=== PATIENT | female | born 1960 | race Caucasian/White ===

== ENCOUNTER → 2019-09-05 09:35 | Outpatient (CLI) | payer OTHER ==
[~2019-09-05 09:35] MED LIST: ACETAMINOPHEN500 M1 PO; ELIQUIS5 MG PO; FLUTICASONE PRO16 GM NASAL; HCTZ25 MG PO; LISINOPRIL10 MG PO; PROTONIX40 MG PO; TUMS X-STR300 MG PO; ZYRTEC10 MG PO
--- NOTE | 2019-09-12 11:41 | ST ---
PATIENT:GEETA DIAZ MEDICAL RECORD: [id number] SEX: F LOCATION:[facility] ORDER #: ADMISSION DATE: 09/05/19 AGE OF PATIENT: 59 REFERRING PHYSICIAN: INTERPRETING PHYSICIAN: RADHA MADERA MD DATE OF SERVICE: 09/05/2019 PROCEDURE: Nuclear stress test. INDICATION: Angina and hypertension. She was exercised on standard Lexiscan protocol with 33 mCi of sestamibi injected at peak stress, 11 mCi used previously for rest images. FINDINGS: Gated SPECT reveals a preserved ejection fraction at 77% with good wall motioning and thickening and brightening throughout all segments. SPECT imaging Cardiolite was used as myocardial perfusion agent. There is reversibility anteriorly, apically and laterally. This includes the basal mid, apical, anterior segments, apex itself, basal mid, apical, lateral segments. The degree of reversibility is moderate anteriorly, mild laterally. OVERALL IMPRESSION: This is a high risk abnormal nuclear stress test. Reversible ischemia, anterior apical and lateral suggestive of multivessel hemodynamically significant coronary artery disease. TRANSINT:[id number] Voice Confirmation ID: [id number] DOCUMENT ID: [id number] RADHA MADERA MD at 1141 CC: JESUS DEMARCO [id number] DICTATION DATE: 09/06/19 1210 SEA FOAM KISS MAKER: 09/07/19 0046 DEP CLI 09/05/[address] [address]
[2019-09-15 08:56] VITALS: BMI 45.8
== END | disposition home or self-care (01) ==
LOC: D.HCCARDIO 09:35
PROVIDERS: ATTEND Internal Medicine Interventional Cardiology
DX: I20.9 Angina pectoris, unspecified (principal)

== ENCOUNTER 2019-09-15 08:05 | Outpatient (CLI) | payer OTHER ==
[~2019-09-15] VITALS: Ht 157.5 cm; Wt 113.6 kg
--- NOTE | ~2019-09-15 | HEMODYNAMI ---
PATIENT:GEETA DIAZ MEDICAL RECORD: [id number] : 64 LOCATION:[facility] ADMISSION DATE: 09/15/19 Generatedon:09/15/201910:18 Patient name: GEETA DIAZ Patient #: [id number] SSN: [id number] : 1960 Date of study: 09/15/2019 Page: Of Hemodynamic Procedure Report Patient Data Patient Demographics Procedure consent was obtained First Name: GEETA Gender: Female Last Name: EMILY : 1960 Patient #: [id number] Age: 59 year(s) Race: Unknown SSN: [id number] Additional ID: [id number] Contact details Address: [address] [place] [address] State: [place] City: [place] Zip code: [address] Past Medical History Allergies Allergen Reaction Date Comments Reported Other allergy 09/15/2019 Biaxin, Doxcycline, PCN Admission Admission Data Admission Date: 09/15/2019 Admission Time: 8:05 Arrival Date: 09/15/2019 Arrival Time: 0:00 Admit Source: Other Insurance Payor: Private health insurance Height (in.): 63 BSA: 2.14 (m2) Height (cm.): 160.02 BMI: 44.99 (kg/m2) Weight (lbs.): 254 Weight (kg.): 115.21 Lab Results Lab Result Date: 09/15/2019 Lab Result Time: 0:00 Biochemistry Name Units Result Min Max BUN mg/dl 14 --(--*-)-- 7 18 Creatinine mg/dl 0.9 --(-*--)-- 0.6 1.3 eGFR ml/min 67.40269 *-(----)-- 90 120 NONAFRICAN CBC Name Units Result Min Max Hematocrit % 43 --(*---)-- 42 54 Hemoglobin g/dl 14.1 --(*---)-- 13.5 17.5 Procedure Procedure Types Cath Procedure Diagnostic Procedure [facility] w/Coronaries Procedure Description Procedure Date Procedure Date: 09/15/2019 Procedure Start Time: 10:04 Procedure End Time: 10:11 Procedure Staff Name Function Cole Koroma MD Performing Physician Juliana Peterson RT Monitor Jael Bal RN Nurse Gaby Hammond RT Scrub Procedure Data Cath Procedure Fluoroscopy Diagnostic fluoroscopy Total fluoroscopy Time: 1.1 time: 1.1 min min Diagnostic fluoroscopy Total fluoroscopy dose: 174 dose: 174 mGy mGy Contrast Material Contrast Material Type Amount (ml) Isovue 300 47 Entry Location Entry Primary Successful Side Size Upsize Upsize Entry Closure Succes sful Closure Location (Fr) 1 (Fr) 2 (Fr) Remarks Device Remarks Femoral Right 5 Fr Exoseal artery Estimated blood loss: 10 ml Diagnostic catheters Device Type Used For End Catheter Placement MULTIPACK Pigtail 5 Fr Procedure catheter MULTIPACK JL 4.0 5Fr Procedure catheter MULTIPACK 3DRC 5Fr catheter Procedure Complications No complications Procedure Medications Medication Administration Route Dosage 0.9% NaCl I.V. 100 ml/hr Oxygen etCO2 Nasal cannula 2 l/min Lidocaine 2% added to field 20 Heparin Flush Bag added to field 2 bags (1000units/500ml NS) Versed I.V. 2 mg Fentanyl I.V. 50 mcg Versed I.V. 2 mg Fentanyl I.V. 50 mcg Versed I.V. 1 mg Hemodynamics Rest BSA: 2.14 (m2) HGB: 14.1 (g/dl) O2 Consumption: Estimated: 222.34 (ml/min) O2 Co nsumption indexed: Estimated:103.9 (ml/min/m) Heart Rate: 92 (bpm) Snapshots Pre Cath Intra NCS Post Cath Vital Signs Time Heart Resp SPO2 etCO2 NIBP (mmHg) Rhythm Pain Sedation Rate (ipm) (%) (mmHg) Status Level (bpm) 9:47:30 89 25 97 37.2 160/86(136) NSR 0 (11) 10(A) , No pain 9:51:44 95 21 97 37.2 140/85(114) NSR 0 (11) 10(A) , No pain 9:55:56 90 21 97 28.8 136/89(115) NSR 0 (11) 10(A) , No pain 10:00:10 93 19 97 40.2 136/79(106) NSR 0 (11) 10(A) , No pain 10:04:22 97 25 97 34.1 136/85(114) NSR 0 (11) 10(A) , No pain 10:08:36 100 30 98 39.5 141/82(114) NSR 0 (11) 10(A) , No pain Medications Time Medication Route Dose Verified Delivered Reason Notes Eff ectiveness by by 9:45:28 0.9% NaCl I.V. 100 Cole Jael used for ml/hr Ga Bal principal consulting engineer 9:45:35 Oxygen etCO2 2 Cole Jael used for Nasal l/min Ga Bal procedure cannula RN 9:45:39 Lidocaine 2% added 20ml Cole Cole for local to vial Ga Koroma MD anesthetic field 9:45:44 Heparin Flush added 2 Cole Cole used for Bag to bags Ga Koroma MD procedure (1000units/500ml field NS) 9:57:58 Versed I.V. 2 mg Cole Jael for Ga Bal sedation RN 9:58:04 Fentanyl I.V. 50 Cole Jael for mcg Ga Bal sedation RN 10:04:02 Versed I.V. 2 mg Cole Jael for Ga Bal sedation RN 10:04:05 Fentanyl I.V. 50 Cole Jael for mcg Ga Bal sedation RN 10:07:34 Versed I.V. 1 mg Cole Jael for Ga Bal sedation sanitary plumber Log Time Note 9:15:29 Informed consent obtained and on chart 9:18:15 Admit Source: Other 9:18:17 Arrival Date: 09/15/2019 12:00:00 AM 9:18:38 Insurance Payor : Private health insurance 9:19:20 Patient Height : 63 inches 9:19:25 Patient Weight : 254 lbs 9:23:56 ACC Patient presents with Stable Angina CCS Anginal Class 2--Slight limitation of ordinary activity. 9:24:02 Procedure Status Elective Heart Cath (OP). 9:24:07 Jael Bal RN sent for patient. Start room use. 9:24:09 Time tracking: Regular hours (M-F 7:00 - 5:00) 9:24:15 Plan of Care:Hemodynamics will remain stable., Cardiac rhythm will remain stable., Comfort level will be maintained., Respiratory function will remain adequate., Patient/ family verbilizes understanding of procedure., Procedure tolerated without complication., Recovers from procedure without complications.. 9:24:54 H&P Date Dictated: 08/29/2019 Within 30 days and on chart., H&P Addendum completed by physician on day of procedure. (MUST COMPLETE FOR ALL OUTPATIENTS). 9:24:56 Pre-procedure instructions explained to patient. 9:25:01 Family in waiting room. 9:25:46 Patient allergic to Other allergyBiaxin, Doxcycline, PCN 9:25:55 Is the patient allergic to Iodine/contrast media? No. 9:25:57 Was the patient premedicated? Yes 9:45:28 0.9% NaCl 100 ml/hr I.V. was administered by Jael Bal RN; used for procedure; Verbal order read back and verified. 9:45:35 Oxygen 2 l/min etCO2 Nasal cannula was administered by Jael Bal RN; used for procedure; Verbal order read back and verified. 9:45:39 Lidocaine 2% 20ml vial added to field was administered by Cole Koroma MD; for local anesthetic; Verbal order read back and verified. 9:45:44 Heparin Flush Bag (1000units/500ml NS) 2 bags added to field was administered by Cole Koroma MD; used for procedure; Verbal order read back and verified. 9:46:22 Vital chart was started 9:50:28 Patient received from Pre/Post Procedure Room to CCL 3 Alert and oriented. Tansferred to table in Supine position. 9:50:29 Warm blankets applied, and dianna hugger turned on for patient comfort. 9:50:29 Correct patient and procedure confirmed by team. 9:50:30 Baseline sample Acquired. 9:50:30 ECG and BP/O2 sat monitors applied to patient. 9:50:36 Rhythm: sinus rhythm 9:50:38 Full Disclosure recording started 9:51:09 Patient diabetic? No. 9:51:11 Is patient on blood thinner?Yes 9:51:15 ACC The patient was administered the following blood thiners within the last 24 hours: Eliquis 9:51:27 PT. HAS FACTOR 5 DISORDER 9:51:31 Patient not . Patient is over age 55. 9:51:33 Previous problem with sedation/anesthesia? No ? 9:51:35 Snore? Yes 9:51:35 Sleep apnea? Yes 9:51:36 Deviated septum? No 9:51:38 Opens mouth fully? Yes 9:51:39 Sticks out tongue? Yes 9:51:42 Airway obstruction? No ? 9:51:45 Dentures? No ? 9:51:50 Pre procedure: right dorsailis pedis pulse 1+ Palpable, but thready & weak; easily obliterated 9:51:54 Patient pain scale 0/10 ?. 9:52:08 IV patent on arrival in left hand with 0.9% NaCl at [facility]. 9:53:23 Lab Result : BUN 14 mg/dl 9:53:23 Lab Result : Creatinine 0.9 mg/dl 9:53:23 Lab Result : eGFR NONAFRICAN 67.61287 ml/min 9:53:23 Lab Result : Hemoglobin 14.1 g/dl 9:53:23 Lab Result : Hematocrit 43 % 9:53:26 Lab results completed and on chart. 9:54:05 Stress Test: yes; abnormal ANTERIOR, LATERAL 9:54:10 Right groin area was prepped with chlora-prep and draped in sterile fashion 9:54:11 Alarms reviewed by R. N. 9:54:12 Sharps counted by scrub and verified by R.N. 9:54:25 Use device set Femoral Dx 9:54:26 ACIST Syringe (32781) opened to sterile field. 9:54:26 Bag Decanter (2002) opened to sterile field. 9:54:27 ACIST Hand Control (46718) opened to sterile field. 9:54:28 ACIST Manifold (01927) opened to sterile field. 9:54:29 Tegaderm 4 x 4 (1626W) opened to sterile field. 9:54:29 Medline Cath Pack ([id number]) opened to sterile field. 9:54:31 DIAGNOSTIC Multipack 5Fr catheter set (HX3595) opened to sterile field. 9:54:31 SHEATH 5FR York (AVE716) opened to sterile field. 9:54:32 EMERALD Guide Wire (502-455) opened to sterile field. 9:56:47 Risk of Mortality: <.1 9:56:50 Risk of blood transfusion: .1 9:56:53 Risk of LISBETH: 1.7 9:57:21 --------ALL STOP TIME OUT------ 9:57:21 Final Timeout: patient, procedure, and site verified with staff and physician. All members of the team are in agreement. 9:57:23 Right groin site verified by team. 9:57:26 Fire Safety Assessment: A--An alcohol-based skin anteseptic being used preoperatively., C--Open oxygen or nitrous oxide is being used., D--An ESU, laser, or fiber-optic light is being used. 9:57:40 Physical assessment completed. ASA score P 3 - A patient with severe systemic disease as per Cole Koroma MD. 9:57:43 Maximum allowable contrast dose (3.7 X eGFR X 0.75)189 ml. 9:57:46 2) 60-89 Mildly reduced kidney function, and other findings (as for stage 1) point to kidney disease. 9:57:49 Sedation plan: IV Moderate Sedation Medication:Versed, Fentanyl 9:57:58 Versed 2 mg I.V. was administered by Jael Bal RN; for sedation; Verbal order read back and verified. 9:58:04 Fentanyl 50 mcg I.V. was administered by Jael Bal RN; for sedation; Verbal order read back and verified. 10:00:52 Zero performed for pressure channel P1 10:03:52 Procedure started. 10:04:02 Versed 2 mg I.V. was administered by Jael Bal RN; for sedation; Verbal order read back and verified. 10:04:05 Fentanyl 50 mcg I.V. was administered by Jael Bal RN; for sedation; Verbal order read back and verified. 10:04:05 Local anesthetic to right femoral artery with Lidocaine 2% by Cole Koroma MD.INITIAL ACCESS ONLY 10:04:38 A 5 Fr sheath was inserted into the Right Femoral artery 10:05:28 A MULTIPACK Pigtail 5 Fr catheter was advanced over the wire and used for Procedure. 10:05:50 LV angiography performed. 10:05:58 EF : 60 % 10:06:02 Catheter removed. 10:06:14 A MULTIPACK JL 4.0 5Fr catheter was advanced over the wire and used for Procedure. 10:06:23 LCA angiography performed. 10:07:34 Versed 1 mg I.V. was administered by Jael Bal RN; for sedation; Verbal order read back and verified. 10:07:34 Catheter removed. 10:07:41 A MULTIPACK 3DRC 5Fr catheter was advanced over the wire and used for . 10:08:42 RCA angiography performed. 10:08:44 Catheter removed. 10:08:46 EXOSEAL 5Fr (EX500) opened to sterile field. 10:09:08 Sheath removed intact; hemostasis achieved with Exoseal to the Right Femoral artery. 10:09:20 Procedure ended.(Physican Out) 10:09:39 Fluoroscopy time 01.10 minutes. 10:09:44 Flurop Dose total: 174 10:09:44 Fluoroscopy dose: 174 mGy 10:09:50 Dose Area Product 1285 mGy/cm. 10:09:58 Contrast amount:Isovue 300 47ml. 10:10:01 Maximum allowable dose exceeded? No. 10:10:05 Sharps counted by scrub and verified by R.N. 10:10:09 Insertion/operative site no bleeding no hematoma. 10:10:14 Post right femoral artery:stable 10:10:25 Post-procedure physical assessment completed. ASA score P 2 - A patient with mild systemic disease as per Cole Koroma MD. 10:10:29 Post procedure rhythm: unchanged. 10:10:32 Estimated blood loss: 10 ml 10:10:34 Post procedure instruction explained to patient.Patient verbalizes understanding. 10:10:40 Procedure and supply charges have been captured, reviewed, submitted and are correct. 10:11:00 Procedure Complication : No complications 10:11:02 Vital chart was stopped 10:11:05 [facility] Findings: mild to moderate CAD (<70%) 10:11:07 Operative report dictated upon procedure completion. 10:11:09 See physician's report for complete and final results. 10:11:10 Report given to Pre/Post Procedure Room. 10:11:15 Patient transfered to Pre/Post Procedure Room with Stretcher. 10:11:17 Procedure ended. 10:11:17 Full Disclosure recording stopped 10:11:20 End room use (Document Last) Device Usage Item Name Manufacture Quantity Catalog Hospital Part Current Minimal L ot# / Number Charge Number Stock Stock Serial# Code ACIST Acist 1 13242 [id number] [id number] [id number] 20 Syringe Medical (00156) Systems Inc Bag Microtek 1 150524 51610 609026 5 Decanter Medical Inc. () ACIST Hand Acist 1 65311 619407 365364 677536 5 Control Medical (25728) Systems Inc ACIST Acist 1 94683 117272 532570 924082 5 Manifold Medical (61632) Systems Inc Tegaderm 4 3M 1 1626W 910060 818378 430065 5 x 4 (1626W) Medline Medline 1 [id number] 070779 46604 257183 5 Cath Pack ([id number]) DIAGNOSTIC Cardinal 1 DA8138 951929 98739 093295 30 Multipack Health 5Fr catheter set (WL6678) SHEATH 5FR Terumo 1 IQY040 869885 598920 336208 5 York (AQB879) EMERALD Cardinal 1 502-455 020842 411683 743091 5 Guide Wire Health (502-455) MULTIPACK Cardinal 1 880526 5 Pigtail 5 Health Fr catheter MULTIPACK Cardinal 1 380240 5 JL 4.0 5Fr Health catheter MULTIPACK Cardinal 1 324871 5 3DRC 5Fr Health catheter EXOSEAL 5Fr Cardinal 1 EX500 661781 564787 576391 10 (EX500) Health Signature Audit [place] Stage Time Signature Unsigned Intra-Procedure 09/15/2019 Juliana Peterson 10:12:00 AM RT(R) Intra-Procedure 09/15/2019 Jael Bal 10:12:28 AM RN Intra-Procedure 09/15/2019 Cole Koroma 10:18:38 AM [facility] [address] [place] [address]
[2019-09-15] MEDS ORDERED: LISINOPRIL10 MG PO (08:44)
[2019-09-15] MEDS ORDERED: HCTZ25 MG PO (08:45)
[2019-09-15] MEDS ORDERED: PROTONIX40 MG PO (08:45)
[2019-09-15] MEDS ORDERED: FLUTICASONE PRO16 GM NASAL (08:45)
[2019-09-15] MEDS ORDERED: ELIQUIS5 MG PO (08:45)
[2019-09-15] MEDS ORDERED: ACETAMINOPHEN500 M1 PO (08:46)
[2019-09-15] MEDS ORDERED: ZYRTEC10 MG PO (08:46)
[2019-09-15] MEDS ORDERED: TUMS X-STR300 MG PO (08:46)
[2019-09-15 08:56] VITALS: BP 146/82; Ht 157.5 cm; Wt 113.6 kg
[2019-09-15 09:27] LABS: BASOPHILS 0.4 % (0-2); EOSINOPHILS 2.6 % (0-7); HEMOGLOBIN 14.1 g/dL (12-16); IMMATURE GRANULOCYTES 0.2 % (0-5); MCH 30.9 pg (26.0-34.0); MCHC 32.8 g/dL (31.0-37.0); MCV 94.3 fL (80.0-100.0); MEAN PLATELET VOLUME 10.5 fL (7.4-10.4); MONOCYTES 7.7 % (2-11); NEUTROPHILS 60.1 % (40-80); PLATELET COUNT 278 10x3/uL (130-400); RBC 4.56 10x6/uL (4.00-5.40); RDW 13.9 % (11.5-14.5); WBC 5.1 10x3/uL (4.8-10.8)
[2019-09-15 09:35] LABS: ANION GAP 13.5 mmol/L (8-16); CALCIUM 9.8 mg/dL (8.5-10.1); CARBON DIOXIDE 28.3 mmol/L (21.0-32.0); CREATININE - SERUM 0.9 mg/dL (0.6-1.3); POTASSIUM - SERUM 3.8 mmol/L (3.5-5.1)
[2019-09-15 09:46] LABS: CHOL - HDL RATIO 4.7 ratio (2.3-4.1); LDL-HDL RATIO 2.9 ratio (1.5-3.5)
--- NOTE | 2019-09-15 10:25 | NUR ---
PT RECEIVED VIA STRETCHER FROM [employer] ATTENDANT FOR RECOVERY. PT AWAKE, SLIGHTLY DROWSY. PT DENIES PAIN OR DISCOMFORT. PT PLACED ON CARDIAC MONITORS. HR NSR RATE 84, BP 156/75, O2 SAT 98 ON ROOM AIR. R GROIN W 5FR EXOCELE, DRESSING CDI NO BLEEDING OR HEMATOMA NOTED. LEG PINK AND WARM, PEDAL PULSES PALPABLE. PT INSTRUCTED TO KEEP HEAD ON PILLOW AND LEG STRAIGHT, SHE VERBALIZED UNDERSTANDING. AT BEDSIDE, CALL LIGHT IN REACH. IV PATENT INFUSING VIA ODERS TO L FOREARM.
--- NOTE | 2019-09-15 10:45 | NUR ---
PT RESTING COMFORTABLY, R GROIN SOFT, DRESSING CDI NO BLEEDING OR HEMATOMA NOTED. LEG PINK AND WARM, PEDAL PULSES PALPABLE. VSS. CALL LIGHT IN REACH.
--- NOTE | 2019-09-15 11:33 | NUR ---
PT RESTING COMFORTABLY, R GROIN SOFT, DRESSING CDI NO BLEEDING OR HEMATOMA NOTED. PT PLACED ON BEDPAN, VOIDED 350CC CLEAR YELLOW URINE W/O DIFFICULITY. PT REPOSITIONED, HOB ELEVATED SLIGHTLY. VSS. LEG REMAINS PINK AND WARM, PEDAL PULSES PALPABLE. CALL LIGHT IN REACH, SANDWICH TRAY SERVED.
--- NOTE | 2019-09-15 12:00 | NUR ---
PT RESTING COMFORTABLY, TOLERATING SANDWICH AND FLUIDS W/O NAUSEA. DR MADERA AT BEDSIDE, REPORT GIVEN TO PT AND REGARDING PLAN OF CARE AND PROCEDURE RESULTS. R GROIN REMAINS SOFT, DRESSING CDI NO BLEEDING OR HEMATOMA NOTED. IV PATENT. CALL LIGHT IN REACH VSS
--- NOTE | 2019-09-15 12:18 | NUR ---
DISCHARGE INSTRUCTIONS REVIEWED W PT AND , BOTH VERBALIZED UNDERSTANDING. IV REMOVED W CATH INTACT, MONITORS REMOVED AND PT UP TO DRESS FOR DISCHARGE.
--- NOTE | 2019-09-15 12:20 | NUR ---
PT DISCHARGED VIA WC TO IN PRIVATE VEHICLE. PT HAD ALL BELONGINGS AND DISCHARGE INSTRUCTIONS
--- NOTE | 2019-09-15 12:45 | NUR ---
PT RESTING W EYES CLOSED, VSS. IV INFUSING VIA ORDERS. R GROIN SOFT, NO BLEEDING OR SWELLING NOTED. LEG PINK AND WARM, PEDAL PULSES PALPABLE. CALL LIGHT IN REACH, S/O AT BEDSIDE. PT DENIES NEEDS AT THIS TIME
--- NOTE | 2019-09-15 13:08 | NUR ---
BP REMAINS LOW, FLUIDS OPENED UP HOB LOWERED SLIGHTLY. BP CUFF MOVED TO OTHER ARM, BP 91/52. PT STATES HER BP RUNS LOW MOST OF THE TIME. WILL CONTINUE TO MONITOR. GROIN REMAINS CDI NO BLEEDING OR SWELLING. PT DENIES NEEDS, CALL LIGHT IN REACH
--- NOTE | 2019-09-20 14:07 | OP ---
PATIENT NAME: GEETA DIAZ MEDICAL RECORD: [id number] :64 LOCATION:[facility] ADMISSION DATE: SURGEON: RADHA MADERA MD DATE OF OPERATION: 09/15/2019 PROCEDURES: 1. Left heart catheterization. 2. Selective coronary angiography. 3. Left ventriculogram. INDICATION: Chest pain, abnormal nuclear stress test. PROCEDURE IN DETAIL: After informed consent was obtained and after a detailed description of the risks, benefits as well as alternative therapies, the patient elected to proceed with angiogram and heart catheterization. The right femoral area was prepped and draped in normal sterile fashion. Right femoral artery was cannulated via modified Seldinger technique with placement of 5-[place]i sheath. All catheters exchanged through this sheath. FINDINGS: Left ventriculogram was performed in standard 30-degree MANZANO view, reveals good cardiac wall motion, ejection fraction 70%. SELECTIVE CORONARY ANGIOGRAPHY: Left main, left anterior descending, left circumflex, right coronary artery are all smooth-walled vessels with no angiographic evidence of coronary artery disease. OVERALL IMPRESSION: 1. No angiographic evidence of coronary artery disease. 2. Normal left heart pressures. 3. Normal left ventricular systolic function. Chest pain is noncardiac in etiology. Stress test was false positive secondary to her size. No further cardiac workup or treatment is necessary. TRANSINT:[id number] Voice Confirmation ID: [id number] DOCUMENT ID: [id number] RADHA MADERA MD at 1407 CC: [id number] DICTATION DATE: 09/15/19 1019 MORTGAGE LOAN COUNSELOR: 09/15/19 1131 [facility] CLI 09/15/[address] [address]
== END 2019-09-15 12:10 | disposition home or self-care (01) ==
LOC: D.CATH 08:05
PROVIDERS: ATTEND Internal Medicine Interventional Cardiology
DX: R07.9 Chest pain, unspecified (principal); R94.30 Abnormal result of cardiovascular function study, unspecified; R06.02 Shortness of breath